=== PATIENT | female | born 1975 | race Caucasian/White ===

== ENCOUNTER 2021-05-22 06:05 | Emergency (ER) | payer OTHER ==
[2021-05-22] MEDS ORDERED: Sodium Chloride 0.9% 1,000 ML IV STA (06:31)
[2021-05-22] MEDS ORDERED: Sodium Chloride 0.9% 10 ML Syringe FLUSH PRN (06:31)
[2021-05-22] MEDS ORDERED: Ondansetron 4 MG/2 ML SDV IVPUSH ONE (06:31)
--- NOTE | 2021-05-22 06:45 | EDM.PDOC ---
<Cal Lee A - Last Filed: 05/22/21 06:57> ED HPI GENERAL MEDICAL PROBLEM - General Chief Complaint: Gastrointestinal Problem Stated Complaint: VOMITING/DIARRHEA/DIZZY Time Seen by Provider: 05/22/21 06:25 Source of Information: Reports: Patient History Limitations: Reports: No Limitations - History of Present Illness INITIAL COMMENTS - FREE TEXT/NARRATIVE: The patient presents with nausea, vomiting and diarrhea. This started last night at 11am. She is here visiting and she went for a long hick yesterday and went out for dinner last night. She does not think she ate any bad food. Other people she was with are not sick. She has no fever, cough, chest pain, or shortness of breath. She did have chills last night. Her throat feels swollen. She has some abdominal cramping when she vomits. She did have some dysuria last night but none now. Onset: Sudden Duration: Hour(s): Location: Reports: Abdomen Quality: Reports: Ache Severity: Mild Improves with: Reports: None Worsens with: Reports: None Associated Symptoms: Reports: Fever/Chills, Nausea/Vomiting. 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 , Other (See Below) Endocrine/Metabolic History: Reports: Hypothyroidism - Past Surgical History HEENT Surgical History: Reports: Adenoidectomy, Tonsillectomy GI Surgical History: Reports: Cholecystectomy Other Female Surgeries/Procedures: bilateral salpinectomy, uterine ablation Social & Family History - Tobacco Use Tobacco Use Status *Q: Never Tobacco User - Alcohol Use Days Per Week of Alcohol Use: 7 Number of Drinks Per Day: 1 Total Drinks Per Week: 7 - Recreational Drug Use Recreational Drug Use: No ED ROS GENERAL - Review of Systems Review Of Systems: See Below Constitutional: Reports: Chills. Denies: Fever HEENT: Reports: Other (throat swelling) Respiratory: Reports: No Symptoms Cardiovascular: Reports: No Symptoms Endocrine: Reports: No Symptoms GI/Abdominal: Reports: Abdominal Pain, Diarrhea, Nausea, Vomiting : Reports: Dysuria Musculoskeletal: Reports: No Symptoms Skin: Reports: No Symptoms ED EXAM, GI/ABD - Physical Exam Exam: See Below Exam Limited By: No Limitations General Appearance: Alert, No Apparent Distress Ears: Normal External Exam Nose: Normal Inspection Throat/Mouth: Normal Inspection Head: Atraumatic, Normocephalic Neck: Normal Inspection Respiratory/Chest: No Respiratory Distress, Lungs Clear, Normal Breath Sounds Cardiovascular: Regular Rate, Rhythm, No Edema, No Murmur GI/Abdominal Exam: Soft, No Organomegaly, No Mass, Tender (Mild lower abdominal tenderness) Course - Re-Assessments/Exams Free Text/Narrative Re-Assessment/Exam: 05/22/21 06:44 I ordered an IV NS 1L bolus, zofran 4mg IV, labs, UA and if she has another bowel movement we will check that. 05/22/21 06:57 It is the end of my shift. Dr Alberto to take over. Departure - Departure Disposition: Home, Self-Care 01 Clinical Impression: Gastroenteritis, Vomiting, Diarrhea, Gastroenteritis - Discharge Information Referrals: PCP,Not In Area [Primary Care Provider] - Forms: ED Department Discharge Additional Instructions: Return to the emergency room with any questions problems or worsening symptoms. As you are traveling through, do not hesitate to utilize emergency services along your travel course. Clear liquid diet for the next 24 hours then slowly advance as tolerated. Use lots of Gatorade or Pedialyte. I sent a prescription for Zofran, the antinausea vomiting medication, to the [place] [facility] in the [place] [employer] [facility]. Take 1 every 6 hours only if needed to control nausea and vomiting symptoms. If you can collect a specimen of your diarrhea I have put an order in to have this tested. Sepsis Event Note (ED) - Evaluation Sepsis Screening Result: No Definite Risk <Darien Alberto - Last Filed: 05/22/21 08:57> Course - Vital Signs Last Recorded V/S: Last Vital Signs Temp 36.6 C 05/22/21 08:15 Pulse 70 05/22/21 08:15 Resp 16 05/22/21 08:15 BP 111/81 05/22/21 08:15 Pulse Ox 94 L 05/22/21 08:15 - Orders/Labs/Meds Orders: Active Orders 24 hr Category Date Time Status Peripheral IV Care [RC] . DIRECTED Care 05/22/21 06:32 Active C DIFFICILE PCR W/REFLEX [MOLEC] Stat Lab 05/22/21 06:47 Ordered STOOL CULTURE/SHIGA TOXIN [MREF] Stat Lab 05/22/21 06:48 Ordered Sodium Chloride 0.9% [Saline Flush] Med 05/22/21 06:31 Active 10 ml FLUSH ASDIRECTED PRN ED Antiemetic Medication Reflex [OM.PC] Stat Oth 05/22/21 06:32 Ordered Peripheral IV Insertion Adult [OM.PC] Stat Oth 05/22/21 06:31 Ordered Medication Orders Sodium Chloride (Sodium Chloride 0.9% 10 Ml Syringe) 10 ml FLUSH ASDIRECTED PRN PRN Reason: Keep Vein Open Last Admin: 05/22/21 06:41 Dose: 10 ml Documented by: GAYATHRI Labs: Laboratory Tests 05/22/21 05/22/21 05/22/21 Range/Units 06:45 06:45 06:45 WBC 6.67 (3.98-10.04) K/mm3 RBC 4.72 (3.98-5.22) M/mm3 Hgb 15.1 (11.2-15.7) gm/dl Hct 45.3 H (34.1-44.9) % MCV 96.0 H (79.4-94.8) fl MCH 32.0 (25.6-32.2) pg MCHC 33.3 (32.2-35.5) g/dl RDW Std Deviation 46.4 H (36.4-46.3) fL Plt Count 238 (182-369) K/mm3 MPV 9.9 (9.4-12.3) fl Neut % (Auto) 88.8 H (34.0-71.1) % Lymph % (Auto) 8.7 L (19.3-51.7) % [place] % (Auto) 1.8 L (4.7-12.5) % Eos % (Auto) 0.6 L (0.7-5.8) Baso % (Auto) 0.1 (0.1-1.2) % Neut # (Auto) 5.92 (1.56-6.13) K/mm3 Lymph # (Auto) 0.58 L (1.18-3.74) K/mm3 [place] # (Auto) 0.12 L (0.24-0.36) K/mm3 Eos # (Auto) 0.04 (0.04-0.36) K/mm3 Baso # (Auto) 0.01 (0.01-0.08) K/mm3 Manual Slide Review Abnormal smear Sodium 141 (136-145) mEq/L Potassium 4.1 (3.5-5.1) mEq/L Chloride 105 (98-107) mEq/L Carbon Dioxide 27 (21-32) mEq/L Anion Gap 13.1 (5-15) BUN 19 H (7-18) mg/dL Creatinine 1.1 H (0.55-1.02) mg/dL Est Cr Clr Drug Dosing 64.93 mL/min Estimated GFR (MDRD) 53 (>60) mL/min BUN/Creatinine Ratio 17.3 (14-18) Glucose 142 H (70-99) mg/dL Calcium 9.1 (8.5-10.1) mg/dL Total Bilirubin 0.6 (0.2-1.0) mg/dL AST 20 (15-37) U/L ALT 18 (14-59) U/L Alkaline Phosphatase 64 (46-116) U/L Total Protein 8.2 (6.4-8.2) g/dl Albumin 4.0 (3.4-5.0) g/dl Globulin 4.2 gm/dL Albumin/Globulin Ratio 1.0 (1-2) Lipase 55 L (73-393) U/L HCG, Qual Negative (NEGATIVE) Urine Color (Yellow) Urine Appearance (Clear) Urine pH (5.0-8.0) Ur Specific [place] (1.005-1.030) Urine Protein (Negative) Urine Glucose (UA) (Negative) Urine Ketones (Negative) Urine Occult Blood (Negative) Urine Nitrite (Negative) Urine Bilirubin (Negative) Urine Urobilinogen (0.2-1.0) Ur Leukocyte Esterase (Negative) Urine RBC (0-5) /hpf Urine WBC (0-5) /hpf Ur Squamous Epith Cells (0-5) /hpf Urine Bacteria (FEW) /hpf Urine Mucus (FEW) /hpf 05/22/21 Range/Units 07:52 WBC (3.98-10.04) K/mm3 RBC (3.98-5.22) M/mm3 Hgb (11.2-15.7) gm/dl Hct (34.1-44.9) % MCV (79.4-94.8) fl MCH (25.6-32.2) pg MCHC (32.2-35.5) g/dl RDW Std Deviation (36.4-46.3) fL Plt Count (182-369) K/mm3 MPV (9.4-12.3) fl Neut % (Auto) (34.0-71.1) % Lymph % (Auto) (19.3-51.7) % [place] % (Auto) (4.7-12.5) % Eos % (Auto) (0.7-5.8) Baso % (Auto) (0.1-1.2) % Neut # (Auto) (1.56-6.13) K/mm3 Lymph # (Auto) (1.18-3.74) K/mm3 [place] # (Auto) (0.24-0.36) K/mm3 Eos # (Auto) (0.04-0.36) K/mm3 Baso # (Auto) (0.01-0.08) K/mm3 Manual Slide Review Sodium (136-145) mEq/L Potassium (3.5-5.1) mEq/L Chloride (98-107) mEq/L Carbon Dioxide (21-32) mEq/L Anion Gap (5-15) BUN (7-18) mg/dL Creatinine (0.55-1.02) mg/dL Est Cr Clr Drug Dosing mL/min Estimated GFR (MDRD) (>60) mL/min BUN/Creatinine Ratio (14-18) Glucose (70-99) mg/dL Calcium (8.5-10.1) mg/dL Total Bilirubin (0.2-1.0) mg/dL AST (15-37) U/L ALT (14-59) U/L Alkaline Phosphatase (46-116) U/L Total Protein (6.4-8.2) g/dl Albumin (3.4-5.0) g/dl Globulin gm/dL Albumin/Globulin Ratio (1-2) Lipase (73-393) U/L HCG, Qual (NEGATIVE) Urine Color Yellow (Yellow) Urine Appearance Clear (Clear) Urine pH 6.5 (5.0-8.0) Ur Specific [place] 1.020 (1.005-1.030) Urine Protein Negative (Negative) Urine Glucose (UA) Negative (Negative) Urine Ketones Negative (Negative) Urine Occult Blood Negative (Negative) Urine Nitrite Negative (Negative) Urine Bilirubin Negative (Negative) Urine Urobilinogen 0.2 (0.2-1.0) Ur Leukocyte Esterase Negative (Negative) Urine RBC 0-5 (0-5) /hpf Urine WBC 0-5 (0-5) /hpf Ur Squamous Epith Cells 0-5 (0-5) /hpf Urine Bacteria Moderate H (FEW) /hpf Urine Mucus Moderate H (FEW) /hpf Meds: Medications Generic Name Dose Route Start Last Admin Trade Name Freq PRN Reason Stop Dose Admin Sodium Chloride 10 ml 05/22/21 06:31 05/22/21 06:41 Sodium Chloride 0.9% 10 Ml Syringe FLUSH 10 ml ASDIRECTED PRN Administration Keep Vein Open Discontinued Medications Generic Name Dose Route Start Last Admin Trade Name Freq PRN Reason Stop Dose Admin Sodium Chloride 1,000 mls @ 1,000 mls/hr 05/22/21 06:31 05/22/21 06:41 Normal Saline IV 05/22/21 07:30 1,000 mls/hr .BOLUS STA Administration Ondansetron HCl 4 mg 05/22/21 06:31 05/22/21 06:41 Ondansetron 4 Mg/2 Ml Sdv IVPUSH 05/22/21 06:32 4 mg ONETIME ONE Administration - Re-Assessments/Exams Free Text/Narrative Re-Assessment/Exam: 05/22/21 08:51 Labs reviewed. Patient is doing much better no nausea she is not had any diarrhea. She does not think she will be able to give us a stool specimen I filled out the paperwork for an outpatient request. I will give her some outpatient Zofran if she needs this. Departure - Departure Time of Disposition: 08:52 Sepsis Event Note (ED) - Focused Exam Vital Signs: Vital Signs Temp Pulse Resp BP Pulse Ox 05/22/21 08:15 36.6 C 70 16 111/81 94 L 05/22/21 06:17 36.6 C 83 15 127/83 96
== END 2021-05-22 09:15 | disposition home or self-care (01) ==
LOC: JD.ED 06:05
DX: K52.9 Noninfective gastroenteritis and colitis, unspecified (principal)
CPT/HCPCS: 36415; 80053; 81001; 83690; 84703; 85025; 87045; 87046; 87493; 87899; 96374; 99284; J2405; J7030; 99283